=== PATIENT | female | born 1950 | race Caucasian/White ===

== ENCOUNTER 2017-09-12 17:35 | Emergency (ER) | payer MEDICARE, BC ==
[~2017-09-12] VITALS: Ht 167.6 cm; Wt 89.5 kg
[2017-09-12] MEDS ORDERED: [UNRECOGNIZED DRUG - CODE] (18:31)
[2017-09-12] MEDS ORDERED: RIZA5TAB30 (18:31)
[2017-09-12] MEDS ORDERED: FLUO-103 (18:31)
[2017-09-12] MEDS ORDERED: HYDR-565 PO (18:52)
[2017-09-12 19:04] VITALS: BP 127/84
== END 2017-09-12 19:06 | disposition home or self-care (01) ==
LOC: ER 17:36
DX: M25.562 Pain in left knee (principal); Z88.0 Allergy status to penicillin; Z88.2 Allergy status to sulfonamides; Z91.040 Latex allergy status
CPT/HCPCS: 73564; 99284

== ENCOUNTER 2020-05-04 09:37 | Emergency (ER) | payer MEDICARE, BC, MEDICAID ==
[~2020-05-04] VITALS: Ht 170.2 cm; Wt 80.0 kg
[~2020-05-04 09:37] MED LIST: ANAS1TAB49; FLUO-103; RIZA5TAB30
[2020-05-04 09:41] VITALS: BP 150/74
== END 2020-05-04 10:09 | disposition home or self-care (01) ==
LOC: ER 09:38
DX: J06.9 Acute upper respiratory infection, unspecified (principal); M19.90 Unspecified osteoarthritis, unspecified site; Z90.89 Acquired absence of other organs; Z98.890 Other specified postprocedural states; Z88.0 Allergy status to penicillin; Z88.2 Allergy status to sulfonamides; Z88.1 Allergy status to other antibiotic agents; Z91.040 Latex allergy status; Z88.5 Allergy status to narcotic agent; Z85.3 Personal history of malignant neoplasm of breast; Z92.21 Personal history of antineoplastic chemotherapy
CPT/HCPCS: 36415; 99281